=== PATIENT | female | born 1935 | race Caucasian/White ===

== ENCOUNTER 2021-09-01 13:39 | Emergency (ER) | payer OTHER ==
[~2021-09-01] VITALS: Ht 157.5 cm; Wt 73.5 kg
[2021-09-01] MEDS ORDERED: TOPROL XL50 M1 PO (13:52)
[2021-09-01] MEDS ORDERED: CRESTOR10 MG PO (13:52)
[2021-09-01] MEDS ORDERED: RESTORIL7.5 MG PO (13:52)
[2021-09-01] MEDS ORDERED: GLUMETZA500 MG PO (13:52)
[2021-09-01] MEDS ORDERED: AZOR 10-20 MG1 EACH PO (13:52)
[2021-09-01] MEDS ORDERED: ZESTRIL40 M1 PO (13:52)
== END 2021-09-01 21:10 | disposition home or self-care (01) ==
LOC: ER 13:39
DX: R07.89 Other chest pain (principal); I20.0 Unstable angina; Z88.6 Allergy status to analgesic agent; I10 Essential (primary) hypertension